=== PATIENT | female | born 1990 | race Two or more races ===

== ENCOUNTER 2017-10-04 21:40 | Emergency (ER) | payer OTHER ==
[2017-10-04 22:23] VITALS: BP 137/82
[2017-10-05 01:25] LABS: Urine Bacteria MOD /hpf (None Seen); Urine Blood 2+ /uL (Negative); Urine Hyaline Cast MANY /lpf (0 - 2); Urine Mucus FEW (None Seen); Urine Specific Gravity 1.029 (1.001-1.035); Urine WBC 14 /hpf (0 - 5)
== END 2017-10-05 01:23 | disposition left against medical advice (07) ==
LOC: ER 21:40
DX: R10.9 Unspecified abdominal pain (principal); Z53.21 Procedure and treatment not carried out due to patient leaving prior to being seen by health care provider
CPT/HCPCS: 74176; 81001